=== PATIENT | female | born 1955 | race Caucasian/White ===

== ENCOUNTER 2018-10-31 18:28 | Emergency (ER) | payer BC ==
[2018-10-31] MEDS ORDERED: NS 1,000 ML IV ONE (18:57)
--- NOTE | 2018-10-31 18:57 | EDPHY ---
HPI/HX/ROS/PE/MDM Narrative: CHIEF COMPLAINT: Palpitations, heart racing, dyspnea HISTORY OF PRESENT ILLNESS: The patient is a 62 y/o female visiting from [place] arriving with her family members complaining of palpitations, heart racing, and mild dyspnea onset today. She flew in on a 4-hour flight a few days ago and has been feeling okay until today. Her PCP started her on prednisone "prophylactically" 8 days ago for possible "preliminary COPD" and she is has currently tapered down to 2mg daily. It's unclear exactly why she was placed on this medication as she denies significant symptoms prompting the treatment. Today around noon she felt nervous and slightly short of breath going up stairs so she used her albuterol inhaler once with improvement in her dyspnea. Later this afternoon she began to feel flushed, nauseated, and felt like her heart was racing. Her daughter, who is a nurse, says the patient's heart rate was around 110 and regular. She has visited [place] previously without respiratory issues and has never had symptoms like this before. She does not feel dehydrated and denies chest pain at any point. She feels a little shaky and nervous right now, but otherwise "okay." No history of cardiac disease, diabetes , hypertension, hypercholesterolemia, clotting issues. No recent illness or contact with ill people at home. No fever, chills, chest pain, leg swelling, vomiting, diarrhea, urinary complaints, headache, lightheadedness, near-syncope or syncope. REVIEW OF SYSTEMS: Aside from elements discussed in the HPI, a comprehensive 10-point review of systems was reviewed and is negative. PAST MEDICAL HISTORY: Osteoporosis; possible early COPD - prednisone, albuterol SOCIAL HISTORY: Former smoker, quit 8 years ago. Family at bedside, daughter is a nurse. VITAL SIGNS: Reviewed by me GENERAL: Well-developed, well-nourished, appears anxious, in no respiratory distress. HEENT: Atraumatic. Eyes: No icterus, no injection. Mouth: dry mucous membranes. No erythema or lesions. Neck: supple with no adenopathy. LUNGS: Diminished but clear to auscultation bilaterally, no wheezes, rhonchi or rales. CARDIAC: Regular rate and rhythm, no rubs, murmurs or gallops. ABDOMEN: Soft, nontender, nondistended. BACK: No CVA tenderness. EXTREMITIES: No trauma. No edema. Range of motion is normal throughout. NEURO: Alert and oriented, grossly nonfocal. SKIN: Warm and dry, no rash. PSYCHIATRIC: Normal mentation, no agitation. Portions of this note were transcribed by a infertility medical assistant. I personally performed a history, physical exam, medical decision making, and confirmed accuracy of information the transcribed note. ED Course: This is a 62 y/o female with recent diagnosis of "preliminary" COPD who is currently visiting from [place] and complains of heart racing and dyspnea onset this afternoon. Lungs are clear but diminished bilaterally on auscultation. Heart rate is regular and not rapid. Presentation suspicious for PE vs. COPD exacerbation. Plan for IV, labs, EKG, chest x-ray. The 12 lead EKG was interpreted by myself. See hard copy and/or "tracemaster" electronic copy for interpretation. Sinus rhythm, LAFB. D-dimer elevated at 2.74. POC troponin is normal. Chest CTA ordered. 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 Patient has no history of hypertension. No PE. Discussed CT with patient and daughter. Provided copy of images on disk. Will followup with PCP on return home. Encouraged to use albuterol MDI 2-4 puffs QID. MDM: Differential diagnosis for the patient's shortness of breath was considered including but not limited to pulmonary infectious processes, COPD exacerbation, pulmonary emboli, pulmonary edema, congestive heart failure, and cardiac causes. - Data Points Imaging Results: Imaging Impressions Chest X-Ray 10/31/18 18:57 Impression: Large lung volumes. Chest/Thorax CTA 10/31/18 19:28 Impression: 1. Emphysema. No pulmonary embolic disease. 2. Small bilateral renal artery aneurysms. Is there a history of vasculitis or fibromuscular dysplasia? Dedicated catheter angiography may be complementary. Results discussed with Dr. Cornell at 8:00 PM. General information for patients regarding this examination can be found at [email or web address]. If you have questions or comments about this report, please contact me at (hospital) or [phone] (cell Imaging: Discussed imaging studies w/ university administrator Radiologist, I viewed and interpreted images myself Laboratory Results: Laboratory Results 10/31/18 18:50 10/31/18 18:50 Medications Given: Discontinued Medications Sodium Chloride (Ns) 1,000 mls @ 0 mls/hr IV ONCE ONE; Wide Open PRN Reason: Protocol Stop: 10/31/18 18:58 Last Admin: 10/31/18 19:25 Dose: 1,000 mls Point of Care Test Results: Chemistry 10/31/18 19:07 POC Troponin I 0.00 ng/mL ng/mL (0.00-0.08) General Time Seen by Provider: 10/31/18 18:42 Initial Vital Signs: Initial Vital Signs Temperature (C) 36.5 C 10/31/18 18:33 Heart Rate 90 10/31/18 18:33 Respiratory Rate 16 10/31/18 18:33 Blood Pressure 125/90 H 10/31/18 18:33 O2 Sat (%) 97 10/31/18 18:33 O2 Delivery Mode Room Air Allergies/Adverse Reactions: penicillin G Allergy (Verified 11/02/18 17:47) Sulfa (Sulfonamide Antibiotics) Allergy (Verified 11/02/18 17:47) Home Medications: Medication Instructions Recorded Albuterol Sulfate [Proair Hfa] 2 puffs IH QID PRN 10/31/18 Ibandronate Sodium [Boniva] 150 mg PO Q30D 10/31/18 Zolpidem Tartrate [Zolpidem 10 mg PO HS PRN 10/31/18 Tartrate] predniSONE [predniSONE] 40 mg PO DAILY 10/31/18 Albuterol [Ventolin Hfa Inhaler] 2 puffs IH QID PRN #1 mdi 11/02/18 predniSONE [prednisone 20mg (RX)] 3 tab PO DAILY #15 tab 11/02/18 Departure - Departure Disposition: Home, Routine, Self-Care Clinical Impression: Dyspnea, Palpitations Condition: Good Instructions: COPD (Chronic Obstructive Pulmonary Disease) (ED) Additional Instructions: 1. Use 2-4 puffs of your albuterol inhaler every 3-4 hours as needed for shortness of breath. This medication can cause shakiness and a rapid heart rate as possible side effects. 2. Increase fluid intake. 3. Continue your prednisone taper. This medication can cause anxiety in some people. 4. Follow up with your primary care provider upon your return home. Bring a copy of your CT with you to that visit. 5. Return to the nearest ED for any worsening of condition. Referrals: MARGUERITE DELGADO [Other] - As per Instructions Report Scribed for: Margie Cornell Report Scribed by: Alyssa Gavin Date of Report: 10/31/18 Time of Report: 18:43
[2018-10-31 19:03] LABS: PLATELET COUNT 332 10^3/uL (150-400)
[2018-10-31] MEDS ORDERED: IOPAMIDOL (ISOVUE 370) 100 ML BTL IV ONE (19:31)
[2018-10-31 20:21] VITALS: BP 121/75
--- NOTE | 2018-10-31 21:03 | CPEKG ---
Test Reason : OPEN Blood Pressure : / mmHG Vent. Rate : 078 BPM Atrial Rate : 076 BPM P-R Int : 132 ms QRS Dur : 086 ms QT Int : 397 ms P-R-T Axes : 049 -59 072 degrees QTc Int : 453 ms Sinus rhythm Left anterior fascicular block Confirmed by Karie Lopez ([id number]) on 10/31/2018 9:03:00 PM Referred By: Confirmed By:Karie Lopez
== END 2018-10-31 20:59 | disposition home or self-care (01) ==
DX: R00.2 Palpitations (principal); R06.00 Dyspnea, unspecified; E86.9 Volume depletion, unspecified; Z87.891 Personal history of nicotine dependence
CPT/HCPCS: 84484-PO; Q9967

== ENCOUNTER 2018-11-02 17:41 | Emergency (ER) | payer BC ==
--- NOTE | 2018-11-02 17:53 | EDPHY ---
H & P Stated Complaint: seen 2 days ago for same/sob throat feels tight Time Seen by Provider: 11/02/18 17:53 HPI/ROS: CHIEF COMPLAINT: Dyspnea HISTORY OF PRESENT ILLNESS: The patient presents to the ED with recurrent dyspnea. The patient was seen in the emergency department 2 days ago and evaluated comprehensively. She had a CT pulmonary angiogram which demonstrated no evidence of PE. EKG and cardiac biomarkers were unremarkable. Chest x-ray demonstrated no evidence of pneumonia but did demonstrate emphysema. The patient was recently diagnosed with COPD. She is visiting from [place]. She recently completed a steroid taper. The patient did use an albuterol inhaler once earlier today. She denies any fever or productive cough. She denies any abdominal pain, nausea, vomiting or diarrhea. She reports moderate dyspnea which is worsened with exertion. REVIEW OF SYSTEMS: A comprehensive 10 point review of systems is otherwise negative aside from elements mentioned in the history of present illness. Source: Patient - Personal History Current Tetanus Diphtheria and Acellular Pertussis (TDAP): Yes - Medical/Surgical History Hx Asthma: No Hx Chronic Respiratory Disease: Yes Hx Diabetes: No Hx Cardiac Disease: No Hx Renal Disease: No Hx Cirrhosis: No Hx Alcoholism: No Hx HIV/AIDS: No Hx Splenectomy or Spleen Trauma: No Other PMH: RAD possible early copd/emphysema - Social History Smoking Status: Never smoked - Physical Exam Exam: General Appearance: Alert, no distress Eyes: Pupils equal and round no pallor or injection ENT, Mouth: Mucous membranes moist Respiratory: Distant breath sounds, no wheezing or rhonchi appreciated Cardiovascular: Regular rate and rhythm Gastrointestinal: Abdomen is soft and nontender, no masses, bowel sounds normal Neurological: Out of 5 strength noted all 4 extremities Skin: Warm and dry, no rashes Musculoskeletal: Neck is supple nontender Extremities: symmetrical, full range of motion, no edema, no evidence of DVT clinically Constitutional: Initial Vital Signs Temperature (C) 36.4 C 11/02/18 17:48 Heart Rate 84 11/02/18 17:48 Respiratory Rate 18 11/02/18 17:48 Blood Pressure 142/82 H 11/02/18 17:48 O2 Sat (%) 92 11/02/18 17:48 O2 Delivery Mode Room Air Allergies/Adverse Reactions: penicillin G Allergy (Verified 11/02/18 17:47) Sulfa (Sulfonamide Antibiotics) Allergy (Verified 11/02/18 17:47) Home Medications: Medication Instructions Recorded Albuterol Sulfate [Proair Hfa] 2 puffs IH QID PRN 10/31/18 Ibandronate Sodium [Boniva] 150 mg PO Q30D 10/31/18 Zolpidem Tartrate [Zolpidem 10 mg PO HS PRN 10/31/18 Tartrate] predniSONE [predniSONE] 40 mg PO DAILY 10/31/18 Albuterol [Ventolin Hfa Inhaler] 2 puffs IH QID PRN #1 mdi 11/02/18 predniSONE [prednisone 20mg (RX)] 3 tab PO DAILY #15 tab 11/02/18 Medical Decision Making - Diagnostics EKG Interpretation: EKG: Complete interpretation has been separately recorded in the [facility] archive. Summary impression: Sinus rhythm, left anterior fascicular block, some motion noted in lateral leads ED Course/Re-evaluation: ER course: I reviewed the patient's workup 2 days ago including the results of her CT scan , EKG, chest x-ray laboratory testing. The patient arrives with a room air oxygen saturation of 94% stable vital signs. I do believe she is having a COPD exacerbation in the setting of recently discontinuing steroids, being in altitude and using albuterol infrequently. The patient was given 60 mg of prednisone orally and a DuoNeb. Re-evaluated the patient at 7:00 p.m. and she is feeling better. Plan will be for a 5 day burst of prednisone. I advised the patient to be using her albuterol inhaler up to every 4 hr as needed. The patient should return to the ED for any markedly worsening symptoms or other concerns. Her EKG demonstrates no evidence of ischemia. The patient's troponin is normal. Differential Diagnosis: Differential diagnosis considered includes asthma, bronchitis, COPD, pneumonia - Data Points Laboratory Results: 11/02/18 18:18 POC Troponin I 0.00 ng/mL ng/mL (0.00-0.08) Medications Given: Discontinued Medications Albuterol/Ipratropium (Duoneb) 3 ml IH EDNOW ONE Stop: 11/02/18 18:05 Last Admin: 11/02/18 18:22 Dose: 3 ml Prednisone (Prednisone) 60 mg PO EDNOW ONE Stop: 11/02/18 18:05 Last Admin: 11/02/18 18:21 Dose: 60 mg Point of Care Test Results: Chemistry 11/02/18 18:18 POC Troponin I 0.00 ng/mL ng/mL (0.00-0.08) Departure - Departure Disposition: Home, Routine, Self-Care Clinical Impression: Chronic obstructive pulmonary disease with acute exacerbation Condition: Good Instructions: COPD (Chronic Obstructive Pulmonary Disease) (ED) Additional Instructions: 1. I recommend taking a high dose of prednisone for the next 5 days. 2. Please use albuterol inhaler up to every 2-4 hours as needed for shortness of breath. 3. Please return to the ED for markedly worsening symptoms or other concerns. 4. Your EKG and cardiac enzymes discontinue to be unremarkable.
[2018-11-02] MEDS ORDERED: IPRATROPIUM/ALBUTEROL 3 ML DEYVIAL IH ONE (18:04)
[2018-11-02] MEDS ORDERED: predniSONE 20 MG TAB PO ONE (18:04)
[2018-11-02 19:25] VITALS: BP 137/78
--- NOTE | 2018-11-02 19:54 | CPEKG ---
Test Reason : OPEN Blood Pressure : / mmHG Vent. Rate : 076 BPM Atrial Rate : 077 BPM P-R Int : 141 ms QRS Dur : 087 ms QT Int : 483 ms P-R-T Axes : 028 -64 034 degrees QTc Int : 544 ms Sinus rhythm Left anterior fascicular block Confirmed by Wai Venegas ([id number]) on 11/02/2018 7:54:08 PM Referred By: Confirmed By:Wai Venegas
== END 2018-11-02 19:27 | disposition home or self-care (01) ==
DX: J44.1 Chronic obstructive pulmonary disease with (acute) exacerbation (principal); Z88.0 Allergy status to penicillin; Z88.2 Allergy status to sulfonamides
CPT/HCPCS: 84484-ER; J7512